=== PATIENT | male | born 1935 | race Caucasian/White ===

== ENCOUNTER 2023-03-21 09:50 | Outpatient (RCR) | payer MEDICARE ==
[~2023-03-21] VITALS: Ht 195.6 cm; Wt 125.2 kg
[2023-03-21 11:16] VITALS: BP 167/94; PULSE 61; TEMP 97.5
[2023-03-21] MEDS ORDERED: TYLENOL SU650 MG/SUP RC (11:38)
[2023-03-21] MEDS ORDERED: MYLANTA COAT-C355 ML PO (11:40)
[2023-03-21] MEDS ORDERED: GENTLE LAXATIVE10 MG RC (11:41)
[2023-03-21] MEDS ORDERED: CLEOCIN HCL300 MG PO (11:41)
[2023-03-21] MEDS ORDERED: LIPITOR 80MG80 MG PO (11:41)
[2023-03-21] MEDS ORDERED: TAMBOCOR 1100 MG/TAB PO (11:42)
[2023-03-21] MEDS ORDERED: MUCINEX 60600 MG/TA1 PO (11:42)
[2023-03-21] MEDS ORDERED: IMODIUM 2MG CAPS2 MG PO (11:43)
[2023-03-21] MEDS ORDERED: NORCO 325 MG-51 TAB PO (11:43)
[2023-03-21] MEDS ORDERED: COZAAR100 MG PO (11:43)
[2023-03-21] MEDS ORDERED: MELATIN 3 MG-11 TAB PO (11:44)
[2023-03-21] MEDS ORDERED: GOOD NEIGH1200 MG/15 (11:44)
[2023-03-21] MEDS ORDERED: MESTINON 6060 MG/TAB PO (11:45)
[2023-03-21] MEDS ORDERED: KAPSPARGO SPRI100 MG PO (11:45)
[2023-03-21] MEDS ORDERED: XARELTO20 MG PO (11:46)
== END 2023-03-21 13:27 ==
LOC: EUO 09:50
DX: G70.00 Myasthenia gravis without (acute) exacerbation (principal)
CPT/HCPCS: J9332